=== PATIENT | male | born 1970 | race Caucasian/White ===

== ENCOUNTER 2023-06-19 13:49 | Emergency (ER) | payer BC, SELFPAY ==
[2023-06-19 13:52] VITALS: BP 122/89
[2023-06-19 14:17] LABS: Urine Albumin 3+ (Neg - Trace); Urine Bilirubin 1+ (Negative); Urine Character Very Cloudy (Clear); Urine Color Amber; Urine Glucose Negative (Negative); Urine Ketone Trace (Negative); Urine Leukocyte 1+ (Negative); Urine Nitrite Positive (Negative); Urine Occult Blood 4+ (Negative); Urine Specific Gravity 1.025 (<1.030); Urine Urobilinogen 3+ (Neg - 1+)
[2023-06-19 14:21] LABS: % Basophils 0.2 % (0-2); % Eosinophils 0.1 % (0-6); % Immature Granulocytes 0.4 % (0-0.5); % Lymphocytes 10.9 % (20.5-51.1); % Monocytes 10.5 % (1.7-9.3); % Neutrophils 77.9 % (42.2-75.2); Absolute Immature Granulocytes 0.1 10^3/uL (0-0.05); Absolute Lymphocytes 1.5 10^3/uL (1.2-3.4); Absolute Monocytes 1.4 10^3/uL (0.1-0.6); Absolute Neutrophils 10.4 10^3/uL (1.4-6.5); Hematocrit 45.1 % (39.0-52.0); Hemoglobin 15.4 g/dL (13.0-18.0); Mean Corp Hgb Conc. 34.1 g/dL (33.0-37.0); Mean Corpuscular Hgb 30.7 pg (27.0-31.0); Mean Platelet Volume 9.2 fL (7.4-10.4); Nucleated Red Blood Cells % 0 % (-); Platelet Count 190 10^3/uL (130-400); Red Blood Cell Count 5.01 10^6/uL (4.70-6.10); Red Cell Dist. Width 12.1 % (11.5-14.5); White Blood Cell Count 13.4 10^3/uL (4.8-10.8)
[2023-06-19 14:26] LABS: Lactic Acid 0.9 mmol/L (0.7-2.0)
[2023-06-19 14:28] LABS: ALT (SGPT) 20 U/L (0-50); AST (SGOT) 16 U/L (17-59); Albumin 4.4 g/dl (3.5-5.0); Alkaline Phosphatase 55 U/L (38-126); Blood Urea Nitrogen 14 mg/dl (9-20); Calcium 9.7 mg/dl (8.4-10.2); Carbon Dioxide 26 mmol/L (22-30); Chloride 101 mmol/L (98-107); Glucose 131 mg/dl (70-99); Sodium 139 mmol/L (135-145); Total Bilirubin 1.8 mg/dl (0.2-1.3); Total Protein 7.4 g/dl (6.3-8.2); eGFR > 60.00
[2023-06-19 14:30] LABS: Urine Red Blood Cell 30-40 /HPF (0-2)
--- NOTE | 2023-06-19 17:26 | ED.GENMED ---
Addendum entered and electronically signed by Dillon Jacobson PA-C 06/22/23 07:46:
UCx w/ 70k E coli, pansensitive. On appropriate abx
Original Note:
History of Present Illness
General
Chief Complaint: Male Genito-Urinary Symptoms
Time Seen by Provider: 06/19/23 15:28
Travel History
Have you had any contact with someone who has COVID-19?: No
Do you have any symptoms of coronavirus? Fever > 100 degrees, chills, cough, shortness of breath, sore throat, loss of taste or smell, muscle aches, or headache?: No
History of Present Illness
History of Present Illness:
52-year-old male with history of hypertension and PTSD presents the emergency department for evaluation of painful urination over the past 2 to 3 days with gross hematuria developing today. Feels some degree of urine retention and has noted fevers
for the past 2 days. Reports right flank and right lower quadrant abdominal pain. No nausea or vomiting. Does not take any anticoagulants. Former smoker, approximately 30+ pack years.
Review of Systems
Review of Systems
Allergies reviewed?: Yes
All Other Systems: ROS reviewed and negative except as documented in HPI and ROS
Phy Exam
Physical Exam
Physical Exam:
GEN: Well appearing, NAD, WDWN
Eyes: PERRLA, EOMs intact, no scleral icterus
HENT: NCAT, oral mucosa moist
Lungs: CTAB, no wheezes, rales, rhonchi, normal chest wall excursion
Cardiac: RRR, no M/R/G, no peripheral edema. Radial pulses 2+ bilat
Abdomen: S, NT, ND, NABS, no masses or hepatosplenomegaly
Neuro: AO x 3, no focal deficits to BUE/BLE, normal sensation throughout
MSK: No gross deformity or ecchymosis. No edema. No digital clubbing
Skin: No rashes, petechiae. Normal color, no pallor or jaundice.
Psych: Calm, cooperative, proper hygiene
Course
Orders/Labs/Results
Orders:
Orders
06/19/23 14:04
Complete Blood Count/With Diff Urgent
Comprehensive Metabolic Panel Urgent
Lactate Level [Lactic Acid] Urgent
Urinalysis Reflex To Culture Urgent
Date Specimen was Collected: 06/19/23
Time Specimen was Collected: 13:54
Urine Microscopic Reflex Cult Urgent
Blood Culture Urgent
GAIL Source: Blood/Venous
Specimen Description:
Urine Culture Urgent
GAIL Source: U
Specimen Description:
Date Specimen was Collected: 06/19/23
Time Specimen was Collected: 13:54
06/19/23 16:11
CT Abd/pel Without Iv Or Oral Urgent
Comment:
Reason For Exam: R flank pain, hematuria
Abnormal Lab Results
06/19/23
14:04
WBC 13.4 H 10^3/uL
(4.8-10.8)
Abs Immat Gran (auto) 0.1 H 10^3/uL
(0-0.05)
Absolute Neuts (auto) 10.4 H 10^3/uL
(1.4-6.5)
Absolute Monos (auto) 1.4 H 10^3/uL
(0.1-0.6)
Neutrophils % 77.9 H %
(42.2-75.2)
Lymphocytes % 10.9 L %
(20.5-51.1)
Monocytes % 10.5 H %
(1.7-9.3)
Glucose 131 H mg/dl
(70-99)
Total Bilirubin 1.8 H mg/dl
(0.2-1.3)
AST 16 L U/L
(17-59)
Urine Ketones Trace A
(Negative)
Ur Occult Blood Reflex 4+ A
(Negative)
Urine Nitrite (Reflex) Positive A
(Negative)
Urine Bilirubin 1+ A
(Negative)
Urine Urobilinogen 3+ A
(Neg - 1+)
Leukocyte Esterase Rfl 1+ A
(Negative)
Urine RBC 30-40 A /HPF
(0-2)
Urine Albumin (Reflex) 3+ A
(Neg - Trace)
06/19/23 14:04
06/19/23 14:04
Vital Signs
Initial and Last Documented VS:
Initial Vital Signs
Temp Pulse Resp BP Pulse Ox
99.0 F 73 18 122/89 97
06/19/23 13:52 06/19/23 13:52 06/19/23 13:52 06/19/23 13:52 06/19/23 13:52
Last Documented Vital Signs
Temp Pulse Resp BP Pulse Ox
99.0 F 73 18 122/89 97
06/19/23 13:52 06/19/23 13:52 06/19/23 13:52 06/19/23 13:52 06/19/23 13:52
MDM/Problems Addressed
MDM/Problems Addressed:
52-year-old male presents with dysuria and hematuria. This is most likely on the basis of hemorrhagic cystitis. Certainly with his smoking history he should follow-up with urology for potential cystoscopy to rule out bladder neoplasm. Will start
him on antibiotics, labs are otherwise reassuring, although he is reported fevers there is no indication for admission for IV antibiotics as he appears clinically well
*Critical Care Note
Total Time (30-74mins, 75-104mins- exclusive of procedures): Not Applicable
ED Attending Note
-
Portions of this chart may have been created with voice recognition software.� Occasional wrong word or��sound alike� substitutions may have occurred due to the inherent limitations of voice recognition software.
Discharge Plan
Departure
Patient Disposition: Home (Routine Discharge)
Date of Disposition: 06/19/23
Time of Disposition: 18:29
Patient with high blood pressure during this ER visit?: No
Discharge Problem:
Hematuria, Acute cystitis
Instructions: Blood in the Urine (Hematuria), Adult (DC)
Prescriptions:
New
cefdinir 300 mg capsule
300 mg PO Q12H 7 Days Qty: 14 0RF
Referrals:
Nixon Hodges MD [Active] -
Erick Mccoy DO [Family Provider] -
Activity Restrictions/Additional Instructions:
I would highly recommend you follow-up with a urologist to further evaluate the blood in your urine however it is most likely due to an acute urinary tract infection. This is particular important if the bleeding does not improve with antibiotics
Interventions
Interventions:
*Risk Screen - Suicide Last Done: 06/19/23 13:52
*General Assessment Last Done: 06/19/23 13:52
*Neglect/Abuse Screening Last Done: 06/19/23 13:52
ED- Fall Risk Assessment Last Done: 06/19/23 16:30
*ED COVID-19 Vaccine History Last Done: 06/19/23 13:52
*Nursing Disposition Last Done: 06/19/23 18:40
ED-Male Genitourinary Assessment Last Done: 06/19/23 16:30
Discharge Date and Time
Discharge Date/Time: 06/19/23 18:40
== END 2023-06-19 18:40 | disposition home or self-care (01) ==
LOC: EMR 13:49
PROVIDERS: Student in an Organized Health Care Education/Training Program; EMERGENCY PHYSICIAN Emergency Medicine; FAMILY PHYSICIAN Family Medicine
DX: N30.01 Acute cystitis with hematuria (principal); I10 Essential (primary) hypertension; F43.10 Post-traumatic stress disorder, unspecified; Z87.891 Personal history of nicotine dependence
CPT/HCPCS: 99284; 51798; 74176; 80053; 81003; 81015; 83605; 85025; 87040; 87077; 87086; 87186